=== PATIENT | male | born 1975 | race African-American/Black ===

== ENCOUNTER 2019-10-21 | Emergency (ER) | payer OTHER ==
[~2019-10-21] VITALS: Ht 177.8 cm; Wt 78.0 kg
[2019-10-21 00:01] VITALS: BP 167/92
== END 2019-10-21 00:45 | disposition home or self-care (01) ==
LOC: ER
DX: F10.129 Alcohol abuse with intoxication, unspecified (principal); R41.82 Altered mental status, unspecified; Y90.9 Presence of alcohol in blood, level not specified
CPT/HCPCS: 99283